=== PATIENT | male | born 1990 | race Caucasian/White ===

== ENCOUNTER 2017-11-27 17:21 | Emergency (ER) | payer BC ==
[2017-11-27 17:25] VITALS: BP 119/79; BMI 26.6
--- NOTE | 2017-11-27 19:32 | CT ---
STUDY: CT THORACIC SPINE WITHOUT CONTRAST HISTORY: Sharp upper back pain. Comparison: None. Technique: Multiple axial images of the thoracic spine were obtained from the cervicothoracic to the thoracolumbar junction without the administration of IV contrast. Sagittal and coronal reformats we re performed and reviewed. Findings: Vertebral body heights and alignment within normal limits. There is no evidence of acute fracture or subluxation. Intervertebral discs are fairly well preserved. No significant facet joint arthropathy c an be appreciated. There is no significant central canal stenosis bony osteophyte or soft tissue comp onents. There is no significant neural foraminal stenosis. The surrounding paraspinous soft tissues a re normal in appearance. The IMPRESSION: 1. Negative exam of the thoracic spine. Reported By:
--- NOTE | 2017-11-27 19:34 | DR.MBACK ---
HPI - Time Seen Time seen: 19:15 - PCP Primary Care Physician: TIM - HPI Comment HPI Comment: HISTORY BELOW. - Complaint Chief Complaint Doctors Comments: UPPER BACK PAIN THAT IS WORSE TODAY. HAVE HAD BOTH UPPER AND LOWER BACK PAIN GOING TO LOWER EXTREMITY OFF AND ON FOR SOME TIME. PAIN IN UPPER BACK GOT WORSE AT WORK TODAY. WAS UNABLE TO DO HIS WORK. NO TRAUMA. 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 Chief Complaint:: PT. C/O BACK PAIN. PT. STATES HE HAS SHARP PAIN BETWEEN HIS SHOULDER BLADES WHICH BEGAN TODAY WHILE HE WAS AT WORK. PT. STATES HE DOES [employer] WORK AND HE IS UNABLE TO USE A SHOVEL OR ANYTHING. PT. DENIES INJURY. - Reviewed Nurses Notes Review: Yes - Source History Provided: Patient - Mode of Arrival Mode of Arrival: Ambulatory - Timing Onset of Chief Complaint: 11/27/17 - Duration Duration: Constant Duration: Hours - Location Back Pain Location: Upper, BACK, Thoracic Radiation To: None - Severity Severity: Moderate - Quality Quality: Aching, Sharp - Context Onset: Spontaneous (AT WORK TODAY.) History of: Chronic Back Pain (PREVIOUS BACK PAIN ON AND OFF.) - Modifying Factors Worsened By: Movement, Twisting - Associated Signs and Symptoms Back Pain Symptoms: None Numbness: None Weakness: None PMH - PMH Past Medical History: No Past Surgical History: No Surgical History: No History - Family History History of Family Medical Conditions: No - Social History Does patient currently use any type of tobacco product: Yes Have you used tobacco products in the last 12 months: Yes Type of Tobacco Use: Cigarettes Does any household member use tobacco: No Alcohol Use: Occasionally Do you use any recreational Drugs:: No Lives With: Spouse Lives Where: Home - infectious screening In the last 2 months have you had wt loss of >10#?: NO Have you had fever, night sweats or hemotysis?: No Have you traveled outside the country in the last 6 months?: No Isolation: Standard ROS - Review of Systems Constitutional: No Symptoms Reported Eyes: No Symptoms Reported ENTM: No Symptoms Reported Respiratoy: No Symptoms Reported Cardiovascular: No Symptoms Reported Gastrointestinal/Abdominal: No Symptoms Reported Genitourinary: No Symptoms Reported Neurological: No Symptoms Reported Musculoskeletal: Back Pain, Back Integumentary: No Symptoms Reported Hematologic/Lymphatic: No Symptoms Reported Endocrine: No Symptoms Reported All Other Systems: Reviewed and Negative PE - Vital Signs Vitals: Temperature 99 F Pulse Rate 73 Respiratory Rate 17 Blood Pressure 119/79 O2 Sat by Pulse Oximetry 97 - General Limitations: No Limitations General Appearance: Alert - Head Head Exam: Normal Inspection - Eyes Eye exam: Normal Appearance - ENT ENT Exam: Normal External Ear Exam - Chest Chest Inspection: Symmetric Chest Wall Rise - Respiratory Respiratory Exam: Normal Lung Sounds Bilat Respiratory Exam: Bilateral Clear to Auscultation - Cardiovascular Cardiovascular Exam: Regular Rate, Normal Rhythm, Normal Heart Sounds - Abdominal Exam Abdominal Exam: Normal Bowel Sounds, Soft. negative: Tenderness - Rectal Rectal Exam: Deferred - Genitourinary Exam: Male: Deferred - Extremities Extremities Exam: Normal Inspection - Back Back Exam: Paraspinal Tenderness, Vertebral Tenderness (THORACIC SPINE) - Neurological Neurological Exam: Alert, Oriented X3 - Psychiatric Psychiatric Exam: Normal Affect, Normal Mood - Skin Skin Exam: Normal Color MDM - Additional Information Additional Information Obtained From: Family - Differential Diagnosis Differential Diagnosis: DJD, Musculoskeletal Pain, Strain Course - Treatment Treatment: SEE ORDERS. - Reevaluation 1st: Improved (IM MED IN ED.) - Education/Counseling Education/Counseling: Patient, Family, Education Educated On: Treatment, Diagnosis, Needs for Follow Up ROR - XRAY XRAY Interpreted by: Radiologist XRAY Findings: REPORT DISCUSS WITH PATIENT. - Diagnosis Discharge Problem: Strain of thoracic spine Qualifiers: Encounter type: initial encounter Qualified Code(s): S29.019A - Strain of muscle and tendon of unspecified wall of thorax, initial encounter - Discharge Plan Condition: Stable Prescriptions: Cyclobenzaprine HCl [FLEXERIL 10 MG *] 10 mg PO TID PRN #20 tab PRN Reason: Ibuprofen [MOTRIN TAB 800 MG *] 800 mg PO Q8H PRN #20 tab PRN Reason: Pain/Inflammation - Follow ups/Referrals Follow ups/Referrals: SHILOH ALTMAN [STAFF PHYSICIAN] - 2 days N[facility],None [Primary Care Provider] - 2 days - Instructions Instructions: Thoracic Strain, [id number] Additional Instructions: RETURN TO ED IF WORSE.
[2017-11-27] MEDS ORDERED: TORADOL 60 MG VIAL IM ONE (19:35)
[2017-11-27] MEDS ORDERED: NORFLEX INJ IM ONE (19:35)
[2017-11-27] MEDS ORDERED: TORADOL 60 MG VIAL ONE (19:37)
[2017-11-27] MEDS ORDERED: NORFLEX INJ ONE (19:37)
== END 2017-11-27 20:06 | disposition home or self-care (01) ==
LOC: ER 17:21
DX: S23.3XXA Sprain of ligaments of thoracic spine, initial encounter (principal); Y33.XXXA Other specified events, undetermined intent, initial encounter; Y92.69 Other specified industrial and construction area as the place of occurrence of the external cause
CPT/HCPCS: 72128; 96372; 99282; 99284; J1885; J2360